=== PATIENT | male | born 2005 | race Caucasian/White ===

== ENCOUNTER 2023-04-11 17:09 | Emergency (ER) | payer MEDICAID ==
[~2023-04-11] VITALS: Ht 175.3 cm; Wt 60.4 kg
[2023-04-11 17:15] VITALS: TEMP 98
[2023-04-11 17:42] LABS: BILIRUBIN,URINE NEGATIVE (Neg); CLARITY,URINE CLOUDY (Clear); COLOR,URINE YELLOW (Yellow); GLUCOSE, URINE NEGATIVE (Neg); KETONES,URINE NEGATIVE (Neg); LEUKOCYTE ESTERASE ,URINE NEGATIVE (Neg); NITRITES, URINE NEGATIVE (Neg); OCCULT BLOOD,URINE NEGATIVE (Neg); PH,URINE 7.5 (4.8-8.0); PROTEIN,URINE NEGATIVE (Neg); UA COLLECTION TYPE VOIDED; UROBILINOGEN,URINE 0.2 E.U/dL (0.2-1.0)
[2023-04-11 17:49] LABS: SQUAMOUS EPITHELIAL CELL,UR FEW /LPF (FEW)
[2023-04-11 17:50] LABS: AMORPHOUS PHOSPHATES 3+; BACTERIA,URINE FEW /HPF (Neg); RBC,URINE 0-2 /HPF (0-2); WBC,URINE 0-4 /HPF (0-4)
[2023-04-11 19:23] LABS: BASOPHILS % (AUTO) 0.7 % (0-1); EOSINOPHILS # (AUTO) 0.1 X10'3 (0-0.9); EOSINOPHILS % (AUTO) 1.1 % (0-6); HEMATOCRIT 41.6 % (42.0-52.0); LYMPHOCYTES # (AUTO) 1.6 X10'3 (1.1-4.8); MEAN CORPUSCULAR HEMOGLOBIN 29.4 PG (27.0-31.0); MEAN CORPUSCULAR HGB CONC 33.7 g/dL (33.0-36.5); MEAN PLATELET VOLUME 8.6 FL (7.4-10.4); MONOCYTES # (AUTO) 0.5 X10'3 (0-0.9); MONOCYTES % (AUTO) 9.3 % (2-12); NEUTROPHILS # (AUTO) 3.4 X10'3 (1.8-7.7); NEUTROPHILS % (AUTO) 59.9 % (42-75); PLATELET COUNT 217 X10'3 (140-440); RED BLOOD COUNT 4.78 X10'6 (4.70-6.10); RED CELL DISTRIBUTION WIDTH 13.3 % (11.5-14.5); WHITE BLOOD COUNT 5.6 X10'3 (4.5-11.0)
[2023-04-11 19:31] LABS: ALANINE AMINOTRANSFERASE 19 U/L (12-78); ALBUMIN 4.3 G/DL (3.4-5.0); ALBUMIN/GLOBULIN RATIO 1.4 (1.1-1.5); ALKALINE PHOSPHATASE 74 IU/L (20-180); ANION GAP 8 (8-16); ASPARTATE AMINO TRANSFERASE 18 U/L (10-37); BILIRUBIN,TOTAL 0.6 MG/DL (0.1-1.0); BLOOD UREA NITROGEN 13 MG/DL (7-18); BUN/CREATININE RATIO 13.8 (10.0-20.0); CALCIUM 9.5 MG/DL (8.5-10.1); CHLORIDE 104 MMOL/L (99-107); CREATININE 0.94 MG/DL (0.60-1.10); GLUCOSE 88 MG/DL (70-104); POTASSIUM 3.7 MMOL/L (3.5-5.1); SODIUM 143 MMOL/L (135-145); TOTAL CARBON DIOXIDE 30.9 MMOL/L (24-32); TOTAL PROTEIN 7.4 G/DL (6.4-8.2); eCRCL 108 ML/MIN; eGFR > 90 ML/MIN
[2023-04-11] MEDS ORDERED: acetaminophen 325mg tablet PO STA (21:13)
[2023-04-11] MEDS ORDERED: ketorolac trometh inj. 60 MG/2 ML VIAL IM ONE (21:15)
[2023-04-11] MEDS ORDERED: CefTRIAXone 250MG inj IM STA (21:23)
[2023-04-11] MEDS ORDERED: azithromycin 250mg tablet PO STA (21:23)
[2023-04-11] MEDS ORDERED: CefTRIAXone 500MG IM Kit w/LIDOcaine IM ONE (21:30)
[2023-04-11] MEDS ORDERED: OXYC-658 PO ×2 (21:34→21:45)
[2023-04-11 22:02] VITALS: BP 156/89; PULSE 89; RESP 18; O2SAT 97
== END 2023-04-11 22:09 | disposition home or self-care (01) ==
LOC: ER 17:10
DX: N50.811 Right testicular pain (principal); Z88.6 Allergy status to analgesic agent; Z79.899 Other long term (current) drug therapy
CPT/HCPCS: 36415; 76870; 80053; 81001; 85025; 87491; 87591; 93976; 96372; 99285; J0696; J1885

== ENCOUNTER 2023-09-30 16:08 | Emergency (ER) | payer MEDICAID ==
[~2023-09-30] VITALS: Ht 175.3 cm; Wt 59.1 kg
[2023-09-30 16:25] VITALS: BP 121/46; PULSE 92; RESP 18; TEMP 99; O2SAT 98
[2023-09-30] MEDS ORDERED: NYST30CR35 TOP (17:05)
== END 2023-09-30 17:07 | disposition home or self-care (01) ==
LOC: ER 16:08
DX: L24.9 Irritant contact dermatitis, unspecified cause (principal)
CPT/HCPCS: 99283

== ENCOUNTER 2023-10-11 08:11 | Emergency (ER) | payer MEDICAID ==
[~2023-10-11] VITALS: Ht 180.3 cm; Wt 59.6 kg
[~2023-10-11 08:11] MED LIST: NYST30CR35 TOP
[2023-10-11 09:42] LABS: BASOPHILS # (AUTO) 0.1 X10'3 (0-0.2); BASOPHILS % (AUTO) 0.9 % (0-1); EOSINOPHILS # (AUTO) 0.1 X10'3 (0-0.9); EOSINOPHILS % (AUTO) 0.7 % (0-6); HEMATOCRIT 45.3 % (42.0-52.0); HEMOGLOBIN 15.1 g/dl (14.0-17.9); LYMPHOCYTES # (AUTO) 1.5 X10'3 (1.1-4.8); LYMPHOCYTES % (AUTO) 21.2 % (21-51); MEAN CORPUSCULAR HEMOGLOBIN 29.3 PG (27.0-31.0); MEAN CORPUSCULAR HGB CONC 33.3 g/dL (33.0-36.5); MEAN CORPUSCULAR VOLUME 88.2 FL (78-98); MEAN PLATELET VOLUME 8.1 FL (7.4-10.4); MONOCYTES # (AUTO) 0.5 X10'3 (0-0.9); MONOCYTES % (AUTO) 7.3 % (2-12); NEUTROPHILS % (AUTO) 69.9 % (42-75); PLATELET COUNT 225 X10'3 (140-440); RED BLOOD COUNT 5.14 X10'6 (4.70-6.10); RED CELL DISTRIBUTION WIDTH 13.6 % (11.5-14.5); WHITE BLOOD COUNT 7.1 X10'3 (4.5-11.0)
[2023-10-11 10:04] LABS: ALANINE AMINOTRANSFERASE 16 U/L (12-78); ALBUMIN 4.4 G/DL (3.4-5.0); ALBUMIN/GLOBULIN RATIO 1.3 (1.1-1.5); ALKALINE PHOSPHATASE 75 IU/L (20-180); ANION GAP 8 (8-16); ASPARTATE AMINO TRANSFERASE 11 U/L (10-37); BILIRUBIN,TOTAL 0.3 MG/DL (0.1-1.0); CALCIUM 9.5 MG/DL (8.5-10.1); CHLORIDE 105 MMOL/L (99-107); CREATININE 0.82 MG/DL (0.60-1.10); GLUCOSE 102 MG/DL (70-104); POTASSIUM 4.4 MMOL/L (3.5-5.1); SODIUM 143 MMOL/L (135-145); TOTAL CARBON DIOXIDE 30.2 MMOL/L (24-32); TOTAL PROTEIN 7.7 G/DL (6.4-8.2); eCRCL 121 ML/MIN; eGFR > 90 ML/MIN
[2023-10-11 10:13] LABS: THYROID STIMULATING HORMONE 0.68 ulU/ml (0.34-4.50)
[2023-10-11 10:15] LABS: BLOOD UREA NITROGEN 14 MG/DL (7-18); BUN/CREATININE RATIO 17.1 (10.0-20.0)
[2023-10-11 12:11] VITALS: BP 111/69; PULSE 68; RESP 16; TEMP 98.3; O2SAT 100
== END 2023-10-11 12:10 | disposition home or self-care (01) ==
LOC: ER 08:11
DX: R52 Pain, unspecified (principal); F12.90 Cannabis use, unspecified, uncomplicated; Z87.81 Personal history of (healed) traumatic fracture; Z72.0 Tobacco use; Z79.899 Other long term (current) drug therapy; Z72.89 Other problems related to lifestyle
CPT/HCPCS: 36415; 71045; 80053; 83735; 84443; 84484; 85025; 93005; 99285

== ENCOUNTER 2024-07-29 04:54 | Emergency (ER) | payer MEDICAID ==
[~2024-07-29] VITALS: Ht 177.8 cm; Wt 60.9 kg
[2024-07-29 05:51] LABS: BASOPHILS % (AUTO) 0.5 % (0-1); EOSINOPHILS # (AUTO) 0.1 X10'3 (0-0.9); EOSINOPHILS % (AUTO) 1.4 % (0-6); HEMATOCRIT 44.2 % (42.0-52.0); HEMOGLOBIN 14.9 g/dl (14.0-17.9); LYMPHOCYTES # (AUTO) 1.6 X10'3 (1.1-4.8); LYMPHOCYTES % (AUTO) 24.6 % (21-51); MEAN CORPUSCULAR HEMOGLOBIN 29.9 PG (27.0-31.0); MEAN CORPUSCULAR HGB CONC 33.8 g/dL (33.0-36.5); MEAN CORPUSCULAR VOLUME 88.5 FL (78-98); MEAN PLATELET VOLUME 8.6 FL (7.4-10.4); MONOCYTES # (AUTO) 0.4 X10'3 (0-0.9); MONOCYTES % (AUTO) 6.6 % (2-12); NEUTROPHILS # (AUTO) 4.3 X10'3 (1.8-7.7); NEUTROPHILS % (AUTO) 66.9 % (42-75); PLATELET COUNT 243 X10'3 (140-440); RED BLOOD COUNT 4.99 X10'6 (4.70-6.10); WHITE BLOOD COUNT 6.4 X10'3 (4.5-11.0)
[2024-07-29 06:09] LABS: ALANINE AMINOTRANSFERASE 25 U/L (12-78); ALBUMIN 4.5 G/DL (3.4-5.0); ALBUMIN/GLOBULIN RATIO 1.3 (1.1-1.5); ALKALINE PHOSPHATASE 76 IU/L (46-116); ANION GAP 9 (8-16); ASPARTATE AMINO TRANSFERASE 17 U/L (10-37); BILIRUBIN,TOTAL 0.7 MG/DL (0.1-1.0); BLOOD UREA NITROGEN 15 MG/DL (7-18); BUN/CREATININE RATIO 18.5 (10.0-20.0); CALCIUM 9.3 MG/DL (8.5-10.1); CHLORIDE 106 MMOL/L (99-107); CREATININE 0.81 MG/DL (0.60-1.10); GLUCOSE 92 MG/DL (70-104); POTASSIUM 3.9 MMOL/L (3.5-5.1); SODIUM 142 MMOL/L (135-145); TOTAL CARBON DIOXIDE 27.4 MMOL/L (24-32); eCRCL 124 ML/MIN; eGFR > 90 ML/MIN
[2024-07-29 06:17] LABS: PRO BRAIN NATRIURETIC PEPTIDE < 30 PG/ML (0-125)
[2024-07-29] MEDS ORDERED: NAPR-56 PO (07:11)
[2024-07-29 07:16] LABS: BILIRUBIN,URINE NEGATIVE (Neg); CLARITY,URINE CLEAR (Clear); COLOR,URINE YELLOW (Yellow); GLUCOSE, URINE NEGATIVE (Neg); KETONES,URINE 40 mg/dl (Neg); LEUKOCYTE ESTERASE ,URINE NEGATIVE (Neg); NITRITES, URINE NEGATIVE (Neg); OCCULT BLOOD,URINE NEGATIVE (Neg); PH,URINE 6.5 (4.8-8.0); PROTEIN,URINE NEGATIVE (Neg); UROBILINOGEN,URINE 0.2 E.U/dL (0.2-1.0)
[2024-07-29 07:24] LABS: UA COLLECTION TYPE VOIDED
[2024-07-29] MEDS: dexamethasone sod phosphate 10mg/ml inj IV STA (07:34)
[2024-07-29] MEDS: ketorolac trometh 15mg/ml vial 15 MG/ML ML IV ONE (07:35)
[2024-07-29] MEDS: LORazepam 1 MG tablet PO ONE (07:35)
[2024-07-29 07:37] LABS: URINE AMPHETAMINE SCREEN NEGATIVE (Neg); URINE BARBITUATE SCREEN NEGATIVE (Neg); URINE BENZODIAZEPINES SCREEN NEGATIVE (Neg); URINE CANNABINOID SCREEN POSITIVE (Neg); URINE COCAINE SCREEN NEGATIVE (Neg); URINE METHADONE SCREEN NEGATIVE (Neg); URINE OPIATE SCREEN NEGATIVE (Neg); URINE PHENCYCLIDINE SCREEN NEGATIVE (Neg)
[2024-07-29 07:42] VITALS: BP 107/61; PULSE 65; RESP 18; TEMP 97.8; O2SAT 99
[2024-07-29 08:40] LABS: CREATINE KINASE 104 U/L (39-308); ETHANOL < 10 MG/DL (<10); MAGNESIUM 1.7 MG/DL (1.5-2.4)
[2024-07-29 08:52] LABS: CREATINE KINASE MB < 0.5 ng/ml (0.3-3.6)
== END 2024-07-29 07:44 | disposition home or self-care (01) ==
LOC: ER 04:55
DX: R07.89 Other chest pain (principal); F12.90 Cannabis use, unspecified, uncomplicated; F17.290 Nicotine dependence, other tobacco product, uncomplicated; F41.9 Anxiety disorder, unspecified; Z79.1 Long term (current) use of non-steroidal anti-inflammatories (NSAID); Z79.899 Other long term (current) drug therapy; Z72.89 Other problems related to lifestyle
CPT/HCPCS: 36415; 71045; 80053; 80305; 80320; 81003; 82550; 82553; 83735; 83874; 83880; 84484; 85025; 85651; 93005; 96374; 96375; 99285; J1100; J1885

== ENCOUNTER 2024-08-20 16:39 | Emergency (ER) | payer MEDICAID ==
[~2024-08-20] VITALS: Ht 180.3 cm; Wt 60.9 kg
[~2024-08-20 16:39] MED LIST changes: +NAPR-56 PO
[2024-08-20] MEDS: TETanus/Pertussis (Acell)/Diphther VAC/PF (Tdap-Adult) 0.5ml syringe IMVAC ONE (17:57)
[2024-08-20 18:07] VITALS: BP 124/68; PULSE 74; RESP 16; TEMP 98.8; O2SAT 98
== END 2024-08-20 18:08 | disposition home or self-care (01) ==
LOC: ER 16:40
DX: S01.01XA Laceration without foreign body of scalp, initial encounter (principal); F12.90 Cannabis use, unspecified, uncomplicated; Z79.899 Other long term (current) drug therapy; Z72.89 Other problems related to lifestyle; W22.8XXA Striking against or struck by other objects, initial encounter; Y93.89 Activity, other specified; Y92.89 Other specified places as the place of occurrence of the external cause; Y99.8 Other external cause status
CPT/HCPCS: 12002; 90471; 90715; 99283